=== PATIENT | male | born 1965 | race Two or more races ===

== ENCOUNTER 2024-06-19 12:30 | Day surgery (SDC) | payer MEDICAID, SELFPAY ==
[2024-06-19] VITALS (9 sets, daily range): BP systolic 112–158; BP diastolic 70–89; PULSE 53–64; RESP 11–20; TEMP 36.2–36.6; O2SAT 92–97; BMI 36.0
[2024-06-19] MEDS: fentaNYL CIT INJ 50 mCg/ML AMP 2ML (ASD USE ONLY) IV (14:31)
[2024-06-19] MEDS: MIDAZOLAM INJ 1 MG/ML VIAL 2 ML (ASD USE ONLY) 2 MG IV (14:34)
== END 2024-06-19 15:45 | disposition home or self-care (01) ==
PROVIDERS: PCP Student in an Organized Health Care Education/Training Program; Referring Provider Surgery; Visit Provider Surgery
PROC: 0DBE8ZX Excision of Large Intestine, Via Natural or Artificial Opening Endoscopic, Diagnostic (ICD-10-PCS; CPT 45380; principal; 2024-06-19 14:30)
DX: Z12.11 Encounter for screening for malignant neoplasm of colon (principal)
CPT/HCPCS: 45378; A4217; J2250; J3010

== ENCOUNTER 2024-07-15 16:42 | Emergency (ER) | payer MEDICAID, SELFPAY ==
[2024-07-15 16:55] VITALS: BP 133/80; PULSE 71; RESP 18; TEMP 36.9; O2SAT 95
[2024-07-15 16:56] VITALS: BMI 35.7
--- NOTE | 2024-07-15 17:01 | XR_ITS ---
Examination: CT brain head without contrast. 2-D sagittal coronal reconstructions Date and time of exam:July 15, 2024 1716 hrs. Indications: Onset headaches dizziness today CTDI: vol (mGy):54.5 DLP: (mGycm):1133 Technique: Multiple CT axial sections of the brain have been obtained, 5 mm slice thickness. Contrast has not been administered. 2-D sagittal, coronal reconstructions have been obtained Low dose protocols were performed. One or more of the following dose reduction techniques were used; automated exposure control, adjustment of the mA and/or KV according to patient size, use of iterative reconstruction technique. Findings: No significant ventricular enlargement. Intra-axial or extra-axial hemorrhage density is not seen. No mass effect or midline shift Basal cisterns are not remarkable. Fourth ventricle is midline. Cranial vault intact. Impression: Negative for acute hemorrhage, mass effect or midline shift Advise clinical correlation and follow-up accordingly
--- NOTE | 2024-07-15 17:01 | EKG_ITS ---
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
--- NOTE | 2024-07-15 17:02 | PD.EDRME ---
Rapid Medical Screening Exam RME Arrival date/time: 07/15/24 16:42 59-year-old male with a history of type 2 diabetes, hypertension, hyperlipidemia presents to the emergency room with a chief complaint of dizziness and lightheadedness that began 30 minutes ago while driving home from work. Patient states he is still feeling lightheaded and fuzzy. I have greeted and performed a focused initial assessment of this patient. A comprehensive ED assessment and evaluation of the patient, analysis of all test results, and completion of the medical decision making process will be conducted by additional ED providers. Chief Complaint: Dizziness Time Seen by Provider: 07/15/24 16:52 Vital signs: Vital Signs Temperature 98.4 F 07/15/24 16:55 Pulse Rate 71 07/15/24 16:55 Respiratory Rate 18 07/15/24 16:55 Blood Pressure 133/80 H 07/15/24 16:55 Pulse Oximetry (%) 95 07/15/24 16:55 Oxygen Delivery Method Room Air 07/15/24 16:55 Vital signs reviewed by provider: Yes
[2024-07-15] MEDS: MECLIZINE HCL 25 MG TABLET PO (17:08)
[2024-07-15 17:36] LABS: Collection Type, Urine Clean Catch
[2024-07-15 17:39] LABS: Basophils # (Auto) 0.1 Thou/mm3 (0.0-0.2); Basophils % (Auto) 1 % (0-2.5); Eosinophils # (Auto) 0.5 Thou/mm3 (0.0-0.5); Eosinophils % (Auto) 4 % (0-10); Hematocrit 44.9 % (41.0-53.0); Hemoglobin 14.7 g/dL (13.5-16.0); Immature Granulocytes % (Auto) 0 % (0-0); Immature Granulocytes Auto 0.03 Thou/mm3 (0.00-0.00); Lymphocytes # (Auto) 2.6 Thou/mm3 (1.0-4.8); Lymphocytes % (Auto) 20 % (10-50); Mean Corpuscular HGB Conc 32.7 g/dl (31.0-37.0); Mean Corpuscular Hemoglobin 29.5 pg (25.0-35.0); Mean Corpuscular Volume 90 fL (80-100); Monocytes # (Auto) 1.2 Thou/mm3 (0.0-0.8); Monocytes % (Auto) 10 % (0-12); Neutrophils # (Auto) 8.5 Thou/mm3 (1.8-7.7); Neutrophils % (Auto) 66 % (37-80); Nucleated Red Blood Cell % 0 /100 WBC (0); Platelet Count 279 Thou/mm3 (140-440); RDW Standard Deviation 41.1 fL (35.1-43.9); Red Blood Count 4.98 Miln/mm3 (4.50-5.90); White Blood Count 12.9 Thou/mm3 (3.8-10.6)
[2024-07-15 17:51] LABS: Bilirubin,Urine Negative (Negative); Blood,Urine Negative (Negative); Clarity,Urine Clear (Clear/Hazy); Color,Urine Lt-Yellow (Lt Yel-Yel); Glucose, Urine 4+ (Negative); Ketones,Urine Negative (Negative); Leukocyte Esterase,Urine Negative (Negative); Nitrite,Urine Negative (Negative); PH,Urine 5.5 (5.0-7.0); Protein,Urine Negative (Neg - Trace); RBC,Urine 2 /hpf (0-3); Specific Gravity,Urine 1.027 (1.001-1.035); Squamous Epithelial Cell,Urine < 1 /hpf (0-5); Urobilinogen,Urine Negative mg/dL (0.0-1.0); WBC,Urine 1 /hpf (0-5)
[2024-07-15 17:59] LABS: Partial Thromboplastin Time 25.6 Seconds (22.0-36.0)
[2024-07-15 18:14] LABS: B-Type Natriuretic Peptide < 20 pg/mL (0-100)
[2024-07-15 18:18] LABS: Alanine Aminotransferase 68 U/L (10-49); Albumin, Serum 4.6 gm/dL (3.4-4.8); Albumin/Globulin Ratio 1.6 (1.2-2.2); Alkaline Phosphatase 95 U/L (46-116); Anion Gap 10 (7-16); Aspartate Amino Transferase 34 U/L (0-34); BUN/Creatinine Ratio 17 Ratio (12-20); Bilirubin,Total 0.3 mg/dL (0.3-1.2); Blood Urea Nitrogen 20 mg/dL (9-23); Calcium 9.4 mg/dL (8.3-10.6); Calcium (Corrected) 9.4 mg/dL (8.5-10.1); Carbon Dioxide 25.3 mMol/L (20.0-31.0); Chloride 104 mMol/L (98-107); Creatinine (Component) 1.2 mg/dL (0.6-1.3); Estimated Creatinine Clearance 79.9 mL/min (>60); Globulin 2.8 gm/dL (2.3-3.5); Glucose 100 mg/dL (74-106); Osmolality,Calculated 280 (275-295); Potassium 4.2 mMol/L (3.4-5.1); Sodium 139 mMol/L (136-145); Total Protein 7.4 gm/dL (5.7-8.2); Troponin I 0.021 ng/mL (0.0-0.045); eGFR > 60 See Note
[2024-07-15 21:48] LABS: Troponin I 0.023 ng/mL (0.0-0.045)
--- NOTE | 2024-07-15 22:17 | EDNOTE_ITS ---
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 Mode of arrival: ambulatory Limitations: no limitations RME / HPI RME / HPI Narrative: 07/15/24 16:42 59-year-old male with a history of type 2 diabetes, hypertension, hyperlipidemia presents to the emergency room with a chief complaint of dizziness and lightheadedness that began 30 minutes ago while driving home from work. Patient states he is still feeling lightheaded and fuzzy. I have greeted and performed a focused initial assessment of this patient. A comprehensive ED assessment and evaluation of the patient, analysis of all test results, and completion of the medical decision making process will be conducted by additional ED providers. Related Data Home Medications ?Medication ?Instructions ?Recorded ?Confirmed aspirin 81 mg tablet,delayed 81 mg PO QDAY 06/18/24 06/18/24 release empagliflozin 10 mg tablet 10 mg PO QDAY 06/18/24 06/18/24 (Jardiance) metformin 500 mg tablet 500 mg PO QDAY 06/18/24 06/18/24 metoprolol tartrate 25 mg tablet 25 mg PO QDAY 06/18/24 06/18/24 pravastatin 20 mg tablet 20 mg PO QDAY 06/18/24 06/18/24 Previous Rx's ?Medication ?Instructions ?Recorded meclizine 25 mg tablet 25 mg PO QDAY PRN dizziness #7 tabs 07/15/24 Allergies Allergy/AdvReac Type Severity Reaction Status Date / Time No Known Allergies Allergy Verified 07/15/24 16:45 Review of Systems Review of Systems Systems Reviewed: All systems reviewed, normal except as documented Constitutional Constitutional: Reports system reviewed and no additional complaints, except as documented, Denies body ache(s), Denies chills and Denies fever(s) Eyes Eyes: Reports system reviewed and no additional complaints, except as documented and Denies change in vision ENT Ears, Nose, Mouth, and Throat: Reports system reviewed and no additional complaints, except as documented, Denies disequilibrium, Reports dizziness, Denies sore throat and Reports vertigo Cardiovascular Cardiovascular: Reports system reviewed and no additional complaints, except as documented, Denies chest pain and Denies dyspnea Respiratory Respiratory: Reports system reviewed and no additional complaints, except as documented, Denies chest congestion, Denies cough and Denies dyspnea Gastrointestinal Gastrointestinal: Reports system reviewed and no additional complaints, except as documented, Denies abdominal pain, Denies nausea and Denies vomiting Musculoskeletal Musculoskeletal: Reports system reviewed and no additional complaints, except as documented, Denies abnormal gait and Denies arthralgias Integumentary/Breasts Skin/Breast: Reports system reviewed and no additional complaints, except as documented, Denies erythema, Denies rash and Denies wounds Neurologic Neurologic: Reports system reviewed and no additional complaints, except as documented, Denies abnormal gait, Denies disequilibrium, Reports dizziness and Reports vertigo Past Medical History Past Medical History NEUROLOGIC: Negative Seizures CARDIAC: Positive Cardiac Disorders and Hypertension; Negative Congestive Heart Failure RESPIRATORY: Positive Sleep Apnea; Negative Chronic Obstructive Pulmonary Disease (COPD) or Asthma GASTROINTESTINAL: Negative Gastrointestinal Disorders GENITOURINARY: Positive Genitourinary Disorders (frequent urination); Negative Renal Disease MUSCULOSKELETAL: Positive Musculoskeletal Disorders ENDOCRINE: Positive Diabetes Mellitus Type 2; Negative Diabetes Mellitus Type 1 HEMATOLOGIC: Negative Sickle Cell Disease OTHER HISTORY: Positive Chicken Pox, Measles and Mumps; Negative Blood Transfusions or Anesthesia Reactions Social History SMOKING STATUS: Never smoker ED Exam General Limitations: Present no limitations General appearance: Present alert and in no apparent distress Head Head exam: Present atraumatic Eye Eye exam: Present normal appearance, PERRL and EOMI ENT ENT exam: Present normal exam, normal oropharynx and mucous membranes moist Neck Neck exam: Present normal inspection, full ROM and trachea midline Chest Chest inspection: Present normal inspection and symmetric chest wall rise Respiratory Respiratory exam: Present normal lung sounds bilaterally Cardiovascular Cardiovascular exam: Present regular rate, normal rhythm and normal heart sounds Abdominal Exam Abdominal exam: Present soft and normal bowel sounds Extremities Exam Extremities exam: Present normal inspection and full ROM Back Exam Back exam: Present normal inspection and full ROM Neurological Exam Neurological exam: Present alert, oriented X3 and CN II-XII intact Psychiatric Psychiatric exam: Present normal affect and normal mood Skin Skin exam: Present warm, dry, intact and normal color Course Quality Measures none Orders Category Date Time Status EKG (ED ONLY) *Do not use* NOW Care 07/15/24 17:[address] head/brain wo con Stat Exams 07/15/24 17:01 Completed EKG (ED Only) Stat Exams 07/15/24 17:01 Draft B-Type Natriuretic Peptide Stat Lab 07/15/24 17:23 Completed CBC Stat Lab 07/15/24 17:23 Completed Comprehensive Metabolic Panel Stat Lab 07/15/24 17:23 Completed Partial Thromboplastin Time Stat Lab 07/15/24 17:23 Completed Prothrombin Time with INR Stat Lab 07/15/24 17:23 Completed Troponin I Stat Lab 07/15/24 17:23 Completed Troponin I Stat Lab 07/15/24 21:06 Completed Urinalysis Stat Lab 07/15/24 17:26 Completed Urine Culture Stat Lab 07/15/24 17:26 Received Meclizine HCl [Antivert] Med 07/15/24 17:01 Discontinued 25 mg PO X1 ONE Vital Signs Vital signs: Vital Signs Temperature 98.4 F 07/15/24 16:55 Pulse Rate 71 07/15/24 16:55 Respiratory Rate 18 07/15/24 16:55 Blood Pressure 133/80 H 07/15/24 16:55 Pulse Oximetry (%) 95 07/15/24 16:55 Oxygen Delivery Method Room Air 07/15/24 16:55 95% room air within normal limits Procedures -ED EKG Interpretation #1: Date of EK07/15/24 Time of EK:10 Rate: 71 Interpretation: Interpreted by me EKG Impression: Normal sinus rhythm, No acute ST-T changes, No ectopy, No ischemic changes and Normal QRS Dizziness MDM Narrative MDM Narrative:: 59-year-old male past medical history of diabetes, hypertension, hyperlipidemia and obesity presents emergency department complaining of dizziness and lightheadedness that began while he was driving from work. CBC mild leukocytosis 12.9. CMP was unremarkable for any elevated LFTs or gross electrolyte abnormalities. EKG sinus rhythm with negative troponins x 2. CT head unremarkable. Patient GCS of 15 with steady gait. Patient reported significant improvement in symptoms with meclizine medication that was given. Patient appears nontoxic and is hemodynamically stable. Patient data External records reviewed:: [facility] previous records Clinical information provided by:: patient Social determinants that could affect healthcare access:: none Patient has the following chronic illnesses:: See chart How is presenting disease/condition affected by chronic disease/condition?: uneffected by Evaluation data The following diagnostics were reviewed and interpreted by me:: lab results, radiology exam(s) and EKG tracing(s) Lab and/or radiology exams considered but not ordered:: Ordered Interpretation Summary: Interpreted by me Medications / Prescriptions Medications or Prescriptions considered but not ordered:: Ordered Medication administrations:: Medication Administration History Discontinued Medications Meclizine HCl (Meclizine Hcl 25 Mg Tablet) 25 mg PO X1 ONE Stop: 07/15/24 17:02 Last Admin: 07/15/24 17:08 Dose: 25 mg Documented By: OA Given Consultations Consultation(s) initiated? (list below): No Diagnosis Dizziness Differential Diagnosis: benign paroxysmal positional vertigo, orthostatic hypotension, vertebral basilar insufficiency, cerebrovascular accident, acute vestibular neuronitis and transient cerebral ischemia Most likely diagnosis given after review of the tests above:: Dizziness Admission Indicated Admission indicated?: not indicated Admission Request Was there a request for admission?: No Disposition Plan Disposition Plan: Discharge Discharge Attestation Discharge Attestation: The patient and all family members were given an opportunity to ask questions and understood the discharge instructions. Discharge instructions specifically effects, indications for sooner follow up or return to the emergency department, and the expected course of current diagnosis. Patient condition: Stable Discharge Plan Plan Patient Disposition: HOME (Self Care) Disposition Comment: Stable Prescriptions/Referrals Prescriptions/Med Rec: New meclizine 25 mg tablet 25 mg PO QDAY PRN (Reason: dizziness) Qty: 7 0RF No Action metformin 500 mg tablet 500 mg PO QDAY aspirin 81 mg tablet,delayed release (DR/EC) 81 mg PO QDAY Patient Comments: TAKE 1 TABLET BY MOUTH EVERY DAY WITH FOOD pravastatin 20 mg tablet 20 mg PO QDAY Patient Comments: TAKE 1 TABLET BY MOUTH EVERY DAY metoprolol tartrate 25 mg tablet 25 mg PO QDAY Patient Comments: TAKE 1/2 TABLET BY MOUTH TWICE A DAY Jardiance 10 mg tablet 10 mg PO QDAY Patient Comments: TAKE 1 TABLET BY MOUTH EVERY MORNING Referrals: Neel Mills MD [Primary Care Provider] - In 1 week Problem List Clinical Impression: Dizziness Patient/Caregiver Discharge Instructions Discharge Activity: activity as tolerated Education Materials: ED Dizziness, Uncertain Cause Additional Instructions: Take medication as prescribed as needed for dizziness. Close follow-up with primary care provider in 2 to 3 days. Return to emergency department for any worsening symptoms or as needed. Print Language: Kyrgyz Stand Alone Forms: Litzy Award Info., Patient Portal Info Letter PA/BACKPACKERS MANAGER Supervising Physician PA/BACKPACKERS MANAGER Supervising Physician: Dr. Bustamante
[2024-07-15 22:37] VITALS: BP 128/84; PULSE 88; O2SAT 99
== END 2024-07-15 22:38 | disposition home or self-care (01) ==
PROVIDERS: Nurse Practitioner Family; Emergency Provider Emergency Medicine; PCP Student in an Organized Health Care Education/Training Program
DX: R42 Dizziness and giddiness (principal); I10 Essential (primary) hypertension; E78.5 Hyperlipidemia, unspecified; E66.9 Obesity, unspecified; Z68.35 Body mass index [BMI] 35.0-35.9, adult; E11.9 Type 2 diabetes mellitus without complications
CPT/HCPCS: 36415; 70450; 80053; 81001; 83880; 84484; 85025; 85610; 85730; 87086; 93005; 99284; A9270

== ENCOUNTER → 2024-08-26 | Outpatient (CLI) | payer SELFPAY ==
[2024-08-26 14:44] LABS: Glucose Estimated Average 128 mg/dL (80-131); Hemoglobin A1C 6.1 % Hgb (4.8-6.0)
== END | disposition home or self-care (01) ==
PROVIDERS: PCP Physician Assistant; Referring Provider Physician Assistant; Visit Provider Physician Assistant
DX: E11.9 Type 2 diabetes mellitus without complications (principal)
CPT/HCPCS: 36415; 83036